=== PATIENT | male | born 1965 | race Caucasian/White ===

== ENCOUNTER 2018-05-07 09:00 | Outpatient (CLI) | payer BC ==
[~2018-05-07] VITALS: Ht 180.3 cm; Wt 83.5 kg
[2018-05-07] MEDS ORDERED: ROSU5TAB12 PO (10:59)
== END 2018-05-07 11:01 | disposition home or self-care (01) ==
LOC: PREOP 09:00
PROVIDERS: ATTEND Surgery
DX: Z01.818 Encounter for other preprocedural examination (principal)

== ENCOUNTER 2018-05-08 11:52 | Day surgery (SDC) | payer BC ==
[~2018-05-08] VITALS: Ht 180.3 cm; Wt 83.5 kg
[~2018-05-08 11:52] MED LIST: ROSU5TAB12 PO
[2018-05-08 12:10] VITALS: BP 128/92
[2018-05-08] MEDS ORDERED: LACTATED RINGERS 1,000 ML IV PRN (12:15)
[2018-05-08] MEDS ORDERED: LACTATED RINGERS 1,000 ML IV ONE (12:16)
[2018-05-08] MEDS ORDERED: PROPOFOL INJECTION 50 ML IV ONE (13:44)
[2018-05-08] MEDS ORDERED: MIDAZOLAM 2 MG/2 ML (VERSED) VIAL ONE (13:45)
--- NOTE | 2018-05-08 15:07 | Progress Note-Pre Operative ---
Pre-Operative Progress Note H&P Reviewed The H&P was reviewed, patient examined and no changes noted. Date Seen by Provider: May 08, 2018 Time Seen by Provider: 15:07 Date H&P Reviewed: May 08, 2018 Time H&P Reviewed: 15:07 Pre-Operative Diagnosis: screening colonoscopy BASIA CARDOZA DO May 08, 2018 15:07
--- NOTE | 2018-05-08 15:49 | Progress Note-Post Operative ---
Post-Operative Progess Note Surgeon (s)/Combine Mechanic (s) Surgeon BASIA CARDOZA DO Combine Mechanic: na Pre-Operative Diagnosis screening colonoscopy Post-Operative Diagnosis colon polyps Procedure & Operative Findings Date of Procedure 05/08/18 Procedure Performed/Findings colonoscopy with hot bx polypectomy x 3 Anesthesia Type per photographic plate maker Estimated Blood Loss Estimated blood loss (mL): none Specimens/Packing Specimens Removed ascending colon polyps x 2, rectal polyp x 1 BASIA CARDOZA DO May 08, 2018 15:49
--- NOTE | 2018-05-08 15:50 | Discharge Inst-Simple/Standard ---
Discharge Inst-Standard Patient Instructions/Follow Up Plan of Care/Instructions/FU: 2 weeks Sharlene Activity as Tolerated: Yes Discharge Diet: Regular Diet BASIA CARDOZA DO May 08, 2018 15:50
[2018-05-08 16:05] VITALS: BP 131/80
[2018-05-08 16:30] VITALS: BP 134/88
--- NOTE | 2018-05-08 17:08 | Anesthesia-General Post-Op ---
MAC Patient Condition Mental Status/LOC: Same as Preop Cardiovascular: Satisfactory Nausea/Vomiting: Absent Respiratory: Satisfactory Pain: Controlled Complications: Absent Post Op Complications Complications None Follow Up Care/Instructions Patient Instructions None needed. Anesthesiology Discharge Order Discharge Order Patient is doing well, no complaints, stable vital signs, no apparent adverse anesthesia problems. No complications reported per nursing. PHAM OQUENDO CRNA May 08, 2018 17:08
--- NOTE | 2018-05-08 20:59 | OPERATIVE REPORT ---
DATE OF SERVICE: 05/08/2018 PREOPERATIVE DIAGNOSIS: Screening colonoscopy. POSTOPERATIVE DIAGNOSIS: Colon polyps. PROCEDURE: Colonoscopy with hot biopsy polypectomy x3. SURGEON: Basia Su DO ANESTHESIA: Per BUSINESS ADVISOR. ESTIMATED BLOOD LOSS: None. COMPLICATIONS: None. INDICATIONS: The patient is a 52-year-old male due for screening colonoscopy. He understands risks and benefits of procedure and wished to proceed with procedure. Consent was signed on the chart. DESCRIPTION OF PROCEDURE: The patient was taken to the endoscopy suite, placed in left lateral recumbent position. Timeout was performed. Digital rectal exam was performed. There were no palpable polyps, mass or ulcerations. The scope was inserted in the rectum, advanced all the way to the cecum with minimal difficulty. Prep was adequate. Scope was then slowly retracted back. There were no polyps, mass or ulceration in the cecum. In the ascending colon, there were 2 small polyps, which hot biopsy polypectomy was performed. Scope was then slowly retracted back. There were no polyps, mass or ulceration in the transverse colon, descending colon or sigmoid colon. Within the sigmoid colon, minimal amount of diverticulosis present. Scope was slowly retracted back into the rectum, where it was also retroflexed noting no other pathology except for a small polyp in the mid rectum, which hot biopsy polypectomy was performed. Scope was then returned to its normal position, slowly withdrawn until completely removed. The patient tolerated procedure well without any complications and was taken to recovery room in stable condition. RECOMMENDATIONS: The patient will need repeat colonoscopy in 5 years. If he has any problems prior to that, he should be reevaluated at that time. We would recommend high fiber diet due to diverticulosis present. We will have him seen in the office in two weeks to discuss pathology and answer any questions. Job ID: [id number] DocumentID: [id number] Dictated Date: 05/08/2018 15:59:23 Cultural Centre Manager Date: 05/08/2018 20:58:29 Dictated By: BASIA SU DO [facility] O[facility]EN MEDICAL CENTERJudy
== END 2018-05-08 16:35 | disposition home or self-care (01) ==
LOC: ENDO 11:52
PROVIDERS: ATTEND Surgery
DX: Z12.11 Encounter for screening for malignant neoplasm of colon (principal); D12.2 Benign neoplasm of ascending colon; K62.1 Rectal polyp